=== PATIENT | male | born 1955 | race Caucasian/White ===

== ENCOUNTER → 2021-11-13 | Outpatient (REF) | payer OTHER | LOC: M SFHCDERM 17:14 | PROVIDERS: ATTEND Physician Assistant | DX: C44.509 Unspecified malignant neoplasm of skin of other part of trunk (principal); C44.202 Unspecified malignant neoplasm of skin of right ear and external auricular canal ==

== ENCOUNTER → 2022-05-15 | Outpatient (REF) | payer MEDICARE, OTHER | LOC: M SFHCDERM 17:26 | PROVIDERS: ATTEND Physician Assistant | DX: C44.519 Basal cell carcinoma of skin of other part of trunk (principal) ==

== ENCOUNTER → 2022-12-04 | Outpatient (REF) | payer MEDICARE, OTHER ==
[2022-12-04 16:26] LABS: HEMATOCRIT 46.8 % (42.0-52.0); HEMOGLOBIN 15.8 g/dl (13.5-17.5); MEAN CORPUSCULAR HEMOGLOBIN 32.4 pg (27.0-33.0); MEAN CORPUSCULAR HGB CONC 33.8 g/dl (32.0-36.5); MEAN CORPUSCULAR VOLUME 95.9 fl (80.0-96.0); PLATELET COUNT, AUTOMATED 206 10^3/uL (150-450); RED BLOOD COUNT 4.88 10^6/uL (4.30-6.10); WHITE BLOOD COUNT 7.8 10^3/uL (4.0-10.0)
[2022-12-04 16:41] LABS: HEMOGLOBIN A1c 5.4 % (4.0-6.0)
[2022-12-04 16:53] LABS: ALBUMIN 3.9 G/DL (3.2-5.2); ALKALINE PHOSPHATASE 95 U/L (46-116); ALT/SGPT 47 U/L (7.0-40); AST/SGOT 25 U/L (<34); BILIRUBIN,TOTAL 0.6 MG/DL (0.3-1.2); BLOOD UREA NITROGEN 16 MG/DL (9-23); CARBON DIOXIDE LEVEL 29 MMOL/L (20-31); CHLORIDE LEVEL 106 MMOL/L (98-107); CHOLESTEROL LEVEL 180 MG/DL (<200); CHOLESTEROL RISK RATIO 3.98 (<5); CREATININE FOR GFR 0.96 MG/DL (0.70-1.30); GLOMERULAR FILTRATION RATE > 60.0 (>49); GLUCOSE, FASTING 105 MG/DL (74-106); HDL CHOLESTEROL 45.2 MG/DL (>40); LDL CHOLESTEROL 108.4 MG/DL (<100); NON-HDL-C 134.8 MG/DL; POTASSIUM SERUM 4.6 MMOL/L (3.5-5.1); SODIUM LEVEL 141 MMOL/L (136-145); TOTAL PROTEIN 6.6 G/DL (5.7-8.2); TRIGLYCERIDES LEVEL 132 MG/DL (<150)
== END ==
LOC: M SFHCADAM 11:36
PROVIDERS: ATTEND Family Medicine
DX: Z13.220 Encounter for screening for lipoid disorders (principal); R13.19 Other dysphagia; Z13.1 Encounter for screening for diabetes mellitus; Z12.5 Encounter for screening for malignant neoplasm of prostate
CPT/HCPCS: 80053; 80061; 83036; 85027; G0103

== ENCOUNTER → 2023-01-20 | Outpatient (REF) | payer MEDICARE, OTHER | LOC: M SFHCDERM 17:41 | PROVIDERS: ATTEND Physician Assistant | DX: C44.319 Basal cell carcinoma of skin of other parts of face (principal) ==

== ENCOUNTER → 2023-05-15 | Outpatient (REF) | payer MEDICARE, OTHER | LOC: M SFHCDERM 15:19 | PROVIDERS: ATTEND Physician Assistant | DX: C44.319 Basal cell carcinoma of skin of other parts of face (principal) ==

== ENCOUNTER 2023-08-20 09:07 | Day surgery (SDC) | payer MEDICARE, OTHER ==
[~2023-08-20] VITALS: Ht 180.3 cm; Wt 88.5 kg
[~2023-08-20 09:07] MED LIST: NS 1,000 ML IV ONE
[2023-08-20] MEDS ORDERED: fentaNYL 100 MCG/2 ML INJECTION As Ordered ONE ×2 (10:01→11:31)
[2023-08-20] MEDS ORDERED: propofoL 200 MG/20 ML VIAL As Ordered ONE ×4 (10:01→11:31)
[2023-08-20] MEDS ORDERED: LIDOCAINE 2% 100MG/5ML SDV (FOR ANES.) As Ordered ONE ×2 (10:01→11:31)
== END 2023-08-20 11:13 | disposition home or self-care (01) ==
LOC: M OPP 09:07
PROVIDERS: ATTEND Internal Medicine Gastroenterology
DX: Z12.11 Encounter for screening for malignant neoplasm of colon (principal); D12.3 Benign neoplasm of transverse colon; K64.0 First degree hemorrhoids; K22.2 Esophageal obstruction; K22.89 Other specified disease of esophagus; R13.10 Dysphagia, unspecified
CPT/HCPCS: 43249; 45380; 45385; 88305; J3010

== ENCOUNTER → 2024-08-18 | Outpatient (REF) | payer MEDICARE, OTHER ==
[2024-08-18 13:23] LABS: HEMATOCRIT 47.9 % (42.0-52.0); HEMOGLOBIN 16.1 g/dl (13.5-17.5); MEAN CORPUSCULAR HEMOGLOBIN 31.8 pg (27.0-33.0); MEAN CORPUSCULAR HGB CONC 33.6 g/dl (32.0-36.5); MEAN CORPUSCULAR VOLUME 94.7 fl (80.0-96.0); PLATELET COUNT, AUTOMATED 217 10^3/uL (150-450); RED BLOOD COUNT 5.06 10^6/uL (4.30-6.10)
[2024-08-18 13:44] LABS: HEMOGLOBIN A1c 5.4 % (4.0-6.0)
[2024-08-18 13:49] LABS: PSA SCREENING 1.51 NG/ML (< 4.00)
[2024-08-18 13:52] LABS: FREE T4 1.27 NG/DL (0.89-1.76); THYROID STIMULATING HORMONE 1.523 uIU/ML (0.55-4.78)
[2024-08-18 13:53] LABS: CHOLESTEROL LEVEL 171 MG/DL (<200); HDL CHOLESTEROL 51.7 MG/DL (>40); LDL CHOLESTEROL 105.7 MG/DL (<100); NON-HDL-C 119.3 MG/DL; TRIGLYCERIDES LEVEL 68 MG/DL (<150)
[2024-08-18 13:56] LABS: FOLATE > 24.00 NG/ML (>5.4); VITAMIN B12 LEVEL 584 PG/ML (211-911)
== END ==
LOC: M SFHCADAM 10:36
PROVIDERS: ATTEND Family Medicine
DX: R43.0 Anosmia (principal); E78.5 Hyperlipidemia, unspecified; Z85.820 Personal history of malignant melanoma of skin; Z13.1 Encounter for screening for diabetes mellitus; Z12.5 Encounter for screening for malignant neoplasm of prostate
CPT/HCPCS: 80061; 82607; 82746; 83036; 84439; 84443; 85027; G0103